=== PATIENT | female | born 1990 | race Caucasian/White ===

== ENCOUNTER 2017-08-17 14:36 | Outpatient (CLI) | payer MEDICAID ==
--- NOTE | 2017-08-17 18:25 | Ultrasound Report ---
FIRST TRIMESTER OB ULTRASOUND: 08/17/2017 CLINICAL INDICATION: Dating. TECHNIQUE: Transabdominal pelvic ultrasound performed for global evaluation. Transvaginal pelvic ultrasound performed for detailed evaluation. Real-time scanning performed and static images obtained. FINDINGS: There is a single viable intrauterine gestation present. heart rate is 174 BPM. The placenta is posterior. Amniotic fluid volume is subjectively normal. The gestational sac appears regular. By crown rump length, the embryo dates 12 weeks 5 days (12 weeks 2 days by LMP dating). The ovaries are unremarkable. No free fluid is present. IMPRESSION: SINGLE VIABLE INTRAUTERINE GESTATION, WITH SIZE IN KEEPING WITH LMP DATING. TD: 08/17/2017 18:23
== END 2017-08-17 14:37 | disposition home or self-care (01) ==
LOC: DI 14:36
DX: O26.841 Uterine size-date discrepancy, first trimester (principal)
CPT/HCPCS: 76801